=== PATIENT | female | born 1975 | race Caucasian/White ===

== ENCOUNTER 2020-10-22 14:34 | Emergency (ER) | payer BC, OTHER ==
[~2020-10-22] VITALS: Ht 172.7 cm; Wt 78.9 kg
[2020-10-22 15:51] LABS: BASOPHILS % (AUTO) 1 % (0-1); EOSINOPHILS % (AUTO) 0 % (1-7); LYMPHOCYTES % (AUTO) 29 % (22-44); MEAN CORPUSCULAR HEMOGLOBIN 31.8 pg (27.0-34.8); MEAN CORPUSCULAR HGB CONC 33.5 g/dL (32.4-35.8); MEAN PLATELET VOLUME 7.2 fL (7.4-10.4); MONOCYTES % (AUTO) 7 % (2-9); NEUTROPHILS % (AUTO) 64 % (42-75); PLATELET COUNT 362 x10^3/uL (130-400); RED BLOOD COUNT 4.48 x10^6/uL (3.82-5.3); RED CELL DISTRIBUTION WIDTH 12.3 % (9.6-15.2)
[2020-10-22 16:03] LABS: ALANINE AMINOTRANSFERASE 15 U/L (12-78); ALBUMIN 3.3 g/dL (3.4-5.0); ANION GAP 4 mmol/L (5-15); CALCIUM 8.5 mg/dL (8.5-10.1); CHLORIDE 110 mmol/L (98-107); CREATININE 0.81 mg/dL (0.55-1.02)
[2020-10-22 16:05] LABS: ALKALINE PHOSPHATASE 97 U/L (45-117); BILIRUBIN,TOTAL 0.3 mg/dL (0.2-1.0); TOTAL PROTEIN 7.2 g/dL (6.4-8.2)
--- NOTE | 2020-10-22 17:00 | NUR ---
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
--- NOTE | 2020-10-22 17:03 | NUR ---
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
--- NOTE | 2020-10-22 17:20 | NUR ---
PT RESTING ON LIS MÉNDEZ/VSS. CALL LIGHT WITHIN REACH
[2020-10-22] MEDS ORDERED: METOCLOPRAMIDE 5 MG/ML, 2ML ONE (17:54)
[2020-10-22] MEDS ORDERED: DEXAMETHASONE 4 MG/ML, 5ML ONE (17:54)
[2020-10-22] MEDS ORDERED: KETOROLAC 30 MG/1 ML ONE (17:54)
[2020-10-22] MEDS ORDERED: KETOROLAC 30 MG/1 ML IVPush ONE (18:00)
[2020-10-22] MEDS ORDERED: DEXAMETHASONE 4 MG/ML, 1ML IVPush ONE (18:00)
[2020-10-22] MEDS ORDERED: SODIUM CHLORIDE 0.9% 1,000ML IVBOLUS ONE (18:00)
[2020-10-22] MEDS ORDERED: METOCLOPRAMIDE 5 MG/ML, 2ML IVPush ONE (18:00)
--- NOTE | 2020-10-22 18:15 | NUR ---
PT SLEEPING ON GURNEY, RESPIRATIONS EVEN AND UNLABORED. NADN/VSS. CALL LIGHT WITHIN REACH
--- NOTE | 2020-10-22 18:45 | NUR ---
REPORT TO MOISE BURGOS
--- NOTE | 2020-10-22 18:48 | NUR ---
REPORT FROM TEAGAN PHIPPS
--- NOTE | 2020-10-22 19:00 | NUR ---
PT SUPINE ON LIS MÉNDEZ, VSS. PT REPORTS IMPROVED BEE S/S. "I AM READY TO GO HOME." ERP AWARE. AWITING D/C.
[2020-10-22 19:45] VITALS: BP 136/81
== END 2020-10-22 19:47 | disposition home or self-care (01) ==
LOC: ED 15:00
DX: G43.909 Migraine, unspecified, not intractable, without status migrainosus (principal); R11.0 Nausea
CPT/HCPCS: 36415; 70450; 80053; 85025; 96361; 96374; 96375; 99285; J1100; J1885; J2765; J7030